=== PATIENT | female | born 1925 | race Caucasian/White ===

== ENCOUNTER → 2016-04-25 | Outpatient (CLI) | payer BC ==
[~2016-04-25] MED LIST: ASPEC81 PO; CHOL100010 PO; EPP3/2 IM; LSN5 PO; MULT-190 PO; MULT-513 PO; SERT50TA PO; SIMV10TA2 PO; SPR25 PO; TPRSR/25 PO
--- NOTE | 2016-04-25 10:04 | DIAGNOSTIC IMAGING REPORT ---
CHEST 2 VIEWS ROUTINE CLINICAL HISTORY: R05 COUGH dyspnea COMPARISON STUDY: 08/02/2015 FINDINGS: Improved overall compared to the prior study. Right lung is considered clear. The degree of parenchymal infiltrative process left base possibly with a small associated nodular density left base laterally IMPRESSION: 1. Poor defined parenchymal infiltrate left base. Possible small associated nodular density versus round atelectasis. Close chest film follow-up is suggested Electronically signed by: Сергей Fernandes M.D. 04/25/2016 10:03 AM Dictated Date/Time: 04/25/2016 10:02 AM
== END | disposition home or self-care (01) ==
LOC: C.RAD 09:41
PROVIDERS: ATTEND Nurse Practitioner Family
DX: R05 Cough (principal); R91.8 Other nonspecific abnormal finding of lung field

== ENCOUNTER → 2016-06-16 | Outpatient (CLI) | payer BC ==
--- NOTE | 2016-06-16 11:34 | DIAGNOSTIC IMAGING REPORT ---
CHEST 2 VIEWS ROUTINE CLINICAL HISTORY: Pneumonia COMPARISON STUDY: 04/25/2016 FINDINGS: The cardiac and mediastinal contours are normal. There is no evidence of focal pulmonary consolidation. There is no evidence of failure. No pleural effusions are visualized.[ The patient is mildly hyperinflated IMPRESSION: No active disease in the chest. Electronically signed by: Cesar Yee M.D. 06/16/2016 11:31 AM Dictated Date/Time: 06/16/2016 11:31 AM
== END | disposition home or self-care (01) ==
LOC: C.RAD 11:06
PROVIDERS: ATTEND Nurse Practitioner Family
DX: J18.9 Pneumonia, unspecified organism (principal)

== ENCOUNTER → 2016-07-25 | Outpatient (CLI) | payer BC ==
--- NOTE | 2016-07-25 14:57 | MAMMOGRAPHY REPORT ---
BILATERAL DIGITAL SCREENING MAMMOGRAM WITH CAD: 07/25/2016 CLINICAL HISTORY: Routine screening. Patient has no complaints. TECHNIQUE: Bilateral CC and MLO views were obtained. Current study was also evaluated with a Compu ter Aided Detection (CAD) system. COMPARISON: Comparison is made to exams dated: 07/20/2015 mammogram, 07/16/2014 mammogram, 05/21/2013 mammogram, 12/28/2011 mammogram, 12/26/2010 mammogram - [facility], and 05/12/2008. BREAST COMPOSITION: The tissue of both breasts is heterogeneously dense, which may obscure small ma sses. FINDINGS: There are mild vascular calcifications in the breast. A few scattered benign rib calcifi cations. No new suspicious mass, architectural distortion or cluster of microcalcifications is seen . IMPRESSION: ACR BI-RADS CATEGORY 1: NEGATIVE There is no mammographic evidence of malignancy. A 1 year screening mammogram is recommended. The p atient will receive written notification of the results. Approximately 10% of breast cancers are not detected with mammography. A negative mammographic repor t should not delay biopsy if a clinically suggestive mass is present. Malu Elam M.D. ay/:07/25/2016 12:57:19 Masking Machine Feeder: Dipti HOPPER(Kelly)(April), [facility] letter sent: Normal 1/2 BI-RADS Code: ACR BI-RADS Category 1: Negative
== END | disposition home or self-care (01) ==
LOC: C.MAMM 11:16
PROVIDERS: ATTEND Family Medicine
DX: Z12.31 Encounter for screening mammogram for malignant neoplasm of breast (principal)